=== PATIENT | female | born 1975 | race Two or more races ===

== ENCOUNTER → 2025-01-27 | Emergency (ER) | payer OTHER ==
[~2025-01-27] VITALS: Ht 165.1 cm; Wt 77.1 kg
[~2025-01-27] MED LIST: SYNTHROID137 MCG PO
== END | disposition home or self-care (01) ==
LOC: ER 17:36
DX: S90.32XA Contusion of left foot, initial encounter (principal); W19.XXXA Unspecified fall, initial encounter; Y93.89 Activity, other specified; Y92.018 Other place in single-family (private) house as the place of occurrence of the external cause; Y99.9 Unspecified external cause status